=== PATIENT | male | born 1960 | race Caucasian/White ===

== ENCOUNTER 2022-09-15 10:22 | Emergency (ER) | payer OTHER ==
[~2022-09-15] VITALS: Ht 182.9 cm; Wt 90.7 kg
[~2022-09-15 10:22] MED LIST: CYCL10 PO; IBUP600 PO; IBUP800 PO
[2022-09-15] MEDS ORDERED: CEPH500 PO (15:11)
== END 2022-09-15 15:26 | disposition home or self-care (01) ==
LOC: ER 10:22
DX: L03.116 Cellulitis of left lower limb (principal); F17.200 Nicotine dependence, unspecified, uncomplicated; Z23 Encounter for immunization
CPT/HCPCS: 90714; A9270

== ENCOUNTER 2022-09-17 16:37 | Emergency (ER) | payer OTHER ==
[~2022-09-17 16:37] MED LIST changes: +CEPH500 PO
== END 2022-09-17 18:19 ==
DX: I46.9 Cardiac arrest, cause unspecified (principal)